=== PATIENT | female | born 1990 | race Caucasian/White ===

== ENCOUNTER 2024-09-23 14:17 | Emergency (ER) | payer OTHER, SELFPAY ==
[2024-09-23 14:44] VITALS: BP 163/91
--- NOTE | 2024-09-23 15:22 | ED.GENMED ---
History of Present Illness
General
Chief Complaint: Back Pain
Source: patient
Time Seen by Provider: 09/23/24 15:21
History of Present Illness
History of Present Illness:
34-year-old female presents complaining of left lower back pain that started this morning. She bent over and turned to the left and felt something give in her lower back. Now she is hunched over and leans to the right when she walks. She denies
any leg discomfort. She denies any bowel or bladder dysfunction. She has a history of back problems. No numbness.
Past History
Past History
ED Past Medical History: None
ED Past Surgical History: Other (Vivian teeth)
Social History
Tobacco: Smoker
Alcohol: Occasional
Drug: Marijuana
Personal: Single
Living: with family
Employment: Employed
Family History
Family History: Cancer
Phy Exam
Physical Exam
Physical Exam:
General: Well-appearing female no acute respiratory distress
HEENT: Normocephalic atraumatic
Musculoskeletal exam: Spasm noted over the left lower lumbar spine. No midline tenderness to lumbar spine.
Neuro: Good sensation and strength to lower extremities bilaterally. Negative straight leg raise.
Course
Orders/Labs/Results
Orders:
Orders
09/23/24 15:32
Diazepam [Valium] 5 mg PO NOW STA
Ketorolac [Toradol] 30 mg IM NOW STA
Vital Signs
Initial and Last Documented VS:
Initial Vital Signs
Temp Pulse Resp BP Pulse Ox
98.0 F 114 18 163/91 98
09/23/24 14:44 09/23/24 14:44 09/23/24 14:44 09/23/24 14:44 09/23/24 14:44
Last Documented Vital Signs
Temp Pulse Resp BP Pulse Ox
98.0 F 114 16 163/91 98
09/23/24 14:44 09/23/24 14:44 09/23/24 16:00 09/23/24 14:44 09/23/24 14:44
MDM/Problems Addressed
Differential Diagnosis Includes:
Left lower back pain. Likely muscular strain. No leg pain to suggest radiculopathy. No bowel or bladder dysfunction to suggest cauda equina. Considered x-rays however not indicated at this time as this is more of a muscular injury. Will treat
with Toradol and Valium.
*Critical Care Note
Total Time (30-74mins, 75-104mins- exclusive of procedures): Not Applicable
Update Note
Update Note:
Patient slightly improved after medicine here. Will prescribe prednisone and muscle relaxers for lumbar strain. Stable for discharge.
ED Attending Note
-
Portions of this chart may have been created with voice recognition software.� Occasional wrong word or��sound alike� substitutions may have occurred due to the inherent limitations of voice recognition software.
Discharge Plan
Departure
Patient Disposition: Home (Routine Discharge)
Date of Disposition: 09/23/24
Time of Disposition: 17:01
Patient with high blood pressure during this ER visit?: No
Discharge Problem:
Lumbar strain
Instructions: Low Back Pain (DC)
Prescriptions:
New
prednisone 10 mg Tablet
See Rx Instructions .ROUTE .COMPLEX Qty: 30 0RF
Rx Instructions:
Take By Mouth:
40 mg daily x3 days, 30 mg daily x3 days,
20 mg daily x3 days, 10 mg daily x3 days.
cyclobenzaprine 10 mg tablet
10 mg PO TID PRN (Reason: spasm) Qty: 10 0RF
No Action
ciprofloxacin HCl 500 MG tablet
500 mg PO BID Qty: 14 0RF
ondansetron 4 MG tablet,disintegrating
4 mg PO Q8H Qty: 12 0RF
hydrocodone-acetaminophen 1 TABLET tablet
1 tab PO Q4HPRN PRN (Reason: Pain) Qty: 10 0RF
diclofenac potassium 50 mg tablet
50 mg PO BID Qty: 20 0RF
prednisone 50 mg Tablet
50 mg PO DAILY Qty: 5 0RF
metaxalone 800 mg tablet
800 mg PO TID PRN (Reason: muscle pain) Qty: 14 0RF
Referrals:
Tuyet Ellison PA-C [Family Provider] -
Activity Restrictions/Additional Instructions:
Continue with warm compresses and [id number] lidocaine patches. Use prednisone and muscle relaxer as needed. Return if worse otherwise follow-up with your doctor
Interventions
Interventions:
*Risk Screen - Suicide Last Done: 09/23/24 14:44
*General Assessment Last Done: 09/23/24 14:58
*Neglect/Abuse Screening Last Done: 09/23/24 14:44
ED- Fall Risk Assessment Last Done: 09/23/24 14:58
ED-Musculoskeletal Assessment Last Done: 09/23/24 14:58
Discharge Date and Time
Print Language: CITIZ[place]
[2024-09-23] MEDS: TORADOL 30 MG IM (15:59)
[2024-09-23] MEDS: VALIUM 5 MG PO (15:59)
[2024-09-23 17:25] VITALS: BP 156/91
== END 2024-09-23 17:26 | disposition home or self-care (01) ==
LOC: EMR 14:17
PROVIDERS: EMERGENCY PHYSICIAN Emergency Medicine; FAMILY PHYSICIAN Physician Assistant
DX: S39.012A Strain of muscle, fascia and tendon of lower back, initial encounter (principal); X50.1XXA Overexertion from prolonged static or awkward postures, initial encounter; F17.200 Nicotine dependence, unspecified, uncomplicated
CPT/HCPCS: 96372; 99284